=== PATIENT | female | born 2000 | race Caucasian/White ===

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

== ENCOUNTER 2021-01-02 12:38 | Emergency (ER) | payer BC, SELFPAY ==
[2021-01-02 12:42] VITALS: BP 133/80; PULSE 110; RESP 14; TEMP 36.3; O2SAT 100
--- NOTE | 2021-01-02 12:45 | DI.RAD_ITS ---
Exam(s) XR SHOULDER LT COMPLETE 2+V EXAM: XR SHOULDER LT COMPLETE 2+V CLINICAL HISTORY: Left shoulder pain, s/p trauma. TECHNIQUE: 2D digital imaging was performed. COMPARISON: No exams were available for comparison FINDINGS: There is no evidence of fracture or dislocation or abnormal soft tissue calcifications. Glenohumeral and AC joints appear unremarkable. There is no diminution of subacromial space height. Bone densit y is normal. No incidental significant osseous lesions IMPRESSION: No fracture. DATA REPOSITORY: RADIATION DOSE DELIVERED:
--- NOTE | 2021-01-02 12:45 | DI.RAD_ITS ---
Exam(s) XR PELVIS AP EXAM: XR PELVIS AP CLINICAL HISTORY: Trauma. TECHNIQUE: 2D digital imaging was performed. COMPARISON: No exams were available for comparison FINDINGS: No evidence of pelvic nor hip fracture. Sacroiliac joints appear unremarkable as does the symphysis pubis bone density is normal. No osseous lesions. IMPRESSION: DATA REPOSITORY: RADIATION DOSE DELIVERED:
--- NOTE | 2021-01-02 12:45 | DI.RAD_ITS ---
Exam(s) XR CHEST 2V PA LATERAL EXAM: XR CHEST 2V PA LATERAL CLINICAL HISTORY: Trauma. TECHNIQUE: 2D digital imaging was performed. COMPARISON: No exams were available for comparison FINDINGS: Heart size is normal. The mediastinum is not widened. Lungs are clear. No infiltrates nor pleural effusions. IMPRESSION: No acute pulmonary findings. DATA REPOSITORY: RADIATION DOSE DELIVERED:
--- NOTE | 2021-01-02 12:45 | DI.RAD_ITS ---
Exam(s) XR HAND RT COMPLETE EXAM: XR HAND RT COMPLETE CLINICAL HISTORY: Injury, right middle finger swollen. TECHNIQUE: 2D digital imaging was performed. COMPARISON: No exams were available for comparison FINDINGS: No evidence of fracture or dislocation. No radiopaque foreign body. No osseous lesions nor erosions . Bone density is normal. IMPRESSION: DATA REPOSITORY: RADIATION DOSE DELIVERED:
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
[2021-01-02] MEDS: Cyclobenzaprine 10 MG TAB PO (13:52)
[2021-01-02 14:14] LABS: Bilirubin Negative (Negative); Blood Trace-intact (Negative); Clarity Sl Cloudy (Clear); Glucose Negative (Negative); Ketones Negative (Negative); Leukocyte Esterase Negative (Negative); Nitrite Negative (Negative); Specific Gravity 1.025 (1.005-1.025); Urobilinogen 0.2 EU/dL (Up TO 0.2); pH 6.5 (5-8)
[2021-01-02] MEDS: Cyclobenzaprine 10 MG TAB, 3 TABS/BTL PO (14:17)
[2021-01-02 14:20] VITALS: BP 113/63; PULSE 74; RESP 16; TEMP 36.3; O2SAT 100
[2021-01-02 14:21] VITALS: BP 113/63; PULSE 74; RESP 16; TEMP 36.3; O2SAT 100
[2021-01-02 14:21] LABS: Bacteria Moderate HPF (Negative); C & S Indicated? No/Sq. Contamination; Casts Negative LPF (Negative); Crystals Negative HPF (Negative); Epithelial Cells Many HPF (Negative); Mucus Negative (Negative)
== END 2021-01-02 14:20 | disposition home or self-care (01) ==
PROVIDERS: Emergency Provider Registered Nurse Emergency; PCP Internal Medicine
DX: S69.91XA Unspecified injury of right wrist, hand and finger(s), initial encounter (principal); M25.512 Pain in left shoulder; R10.32 Left lower quadrant pain; S60.031A Contusion of right middle finger without damage to nail, initial encounter; V86.55XA Driver of 3- or 4- wheeled all-terrain vehicle (ATV) injured in nontraffic accident, initial encounter; R40.2412 Glasgow coma scale score 13-15, at arrival to emergency department
CPT/HCPCS: 81025; 99284; 71046; 72170; 73030; 73130; 81003; 81015

== ENCOUNTER 2021-07-31 13:28 | Outpatient (REF) | payer BC, SELFPAY ==
[2021-08-01 14:11] LABS: Chlamydia Result Negative (Negative); GC Result Negative (Negative)
== END 2021-07-31 13:29 | disposition home or self-care (01) ==
LOC: LBN 13:28
PROVIDERS: PCP Internal Medicine; Visit Provider Nurse Practitioner Women's Health
DX: Z11.3 Encounter for screening for infections with a predominantly sexual mode of transmission (principal)
CPT/HCPCS: 87491; 87591

== ENCOUNTER 2022-06-14 21:39 | Outpatient (REF) | payer BC, SELFPAY ==
[2022-06-14 22:02] LABS: Bacteria Many HPF (Negative); Casts Negative LPF (Negative); Crystals Negative HPF (Negative); Epithelial Cells Few HPF (Negative); Mucus Negative (Negative); Other Cells Negative (Negative); RBC 0-2 HPF (0-2)
[2022-06-15 07:33] LABS: C & S Indicated? C&S Done As Ordered
[2022-06-16 13:52] LABS: Chlamydia Result Negative (Negative); GC Result Negative (Negative)
== END 2022-06-14 21:40 | disposition home or self-care (01) ==
LOC: LBN 21:39
PROVIDERS: PCP Internal Medicine; Visit Provider Physician Assistant Medical
DX: R30.0 Dysuria (principal)
CPT/HCPCS: 87491; 87591; 81015; 87086; 87480; 87510; 87660

== ENCOUNTER 2022-06-21 10:36 | Emergency (ER) | payer BC, SELFPAY ==
[2022-06-21 10:38] VITALS: BP 145/85; PULSE 115; RESP 18; TEMP 36.9; O2SAT 98
--- NOTE | 2022-06-21 10:45 | DI.CT_ITS ---
Exam(s) CT HEAD WO EXAM: CT HEAD WO CLINICAL HISTORY: left head pain and blurred vision post fall with H. TECHNIQUE: Imaging Protocol: Axial computed tomography images with coronal and sagittal reformatted images were created and reviewed COMPARISON: CT CT HEAD CERVICAL SPINE WO from 02/09/2020 FINDINGS: Ventricles and Extra axial spaces: Normal in size and morphology for the patient's age. Hemorrhage: None. Cerebral parenchyma: Normal. Midline shift: None. Brainstem/Cerebellum: Normal. Calvarium: Normal. Visualized Paranasal sinuses/Mastoids: Clear. Soft Tissues: Unremarkable. IMPRESSION: No acute intracranial process. RADIATION DOSE DELIVERED: 849.17mGy.cm Total DLP DATA REPOSITORY: All CT scans at this facility are submitted to the National Radiology Data Registry (NRDR) Dose Index Registry (DIR) with the [employer] (A[employer]). RADIATION OPTIMIZATION: All CT scans at this facility use at least one of these dose optimization te chniques: automated exposure control; mA and/or kV adjustment per patient size (includes targeted exa ms where dose is matched to clinical indication); or iterative reconstruction.
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
[2022-06-21 12:08] VITALS: PULSE 101
[2022-06-21] MEDS: Acetaminophen 325 MG TAB 650 MG PO (12:08)
[2022-06-21] MEDS: Ibuprofen 600 MG TAB PO (12:08)
== END 2022-06-21 12:09 | disposition home or self-care (01) ==
PROVIDERS: Emergency Provider Physician Assistant; PCP Internal Medicine
DX: S06.0X0A Concussion without loss of consciousness, initial encounter (principal); W22.03XA Walked into furniture, initial encounter; H53.8 Other visual disturbances
CPT/HCPCS: 99284; 70450

== ENCOUNTER 2023-04-18 10:33 | Emergency (ER) | payer BC, SELFPAY ==
[2023-04-18 10:37] VITALS: BP 160/89; PULSE 107; RESP 16; TEMP 36.7; O2SAT 99
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
== END 2023-04-18 11:07 | disposition home or self-care (01) ==
PROVIDERS: Emergency Provider Physician Assistant; PCP Internal Medicine
DX: M54.16 Radiculopathy, lumbar region (principal); R05.9 Cough, unspecified; F17.210 Nicotine dependence, cigarettes, uncomplicated
CPT/HCPCS: 99283

== ENCOUNTER 2023-08-12 11:51 | Emergency (ER) | payer BC, SELFPAY ==
[2023-08-12 11:57] VITALS: BP 128/73; PULSE 87; RESP 16; TEMP 36.7; O2SAT 98
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
[2023-08-12 12:43] LABS: Bilirubin Negative (Negative); Blood Large (Negative); Clarity Clear (Clear); Glucose Negative (Negative); Ketones Negative (Negative); Leukocyte Esterase Negative (Negative); Nitrite Negative (Negative); Urobilinogen 0.2 mg/dL (Up to 0.2)
[2023-08-12] MEDS: Ketorolac 15 MG/ML VIAL IVP (12:47)
[2023-08-12] MEDS: Normal Saline 1,000 ML 1000 ML IV (12:47)
[2023-08-12] MEDS: ACETAMINOPHEN 1,000 MG/100 ML BTL 400 MG IVPB (12:47)
[2023-08-12 12:49] LABS: Lactate 1.2 mmol/L (0.6-1.4)
[2023-08-12 12:49] LABS: Bacteria Negative HPF (Negative); C & S Indicated? No; Casts Negative LPF (Negative); Crystals Negative HPF (Negative); Epithelial Cells Few HPF (Negative); Mucus Negative (Negative); WBC 0-2 HPF (0-5)
[2023-08-12 12:51] LABS: Abs Immature Grans 0.01 10^3/uL (0.0-0.06); Absolute Basophil Count 0.03 10^3/uL (0.0-0.2); Absolute Eosinophil Count 0.23 10^3/uL (0.0-0.7); Absolute Lymphocyte Count 3.22 10^3/uL (1.2-3.4); Absolute Monocyte Count 0.36 10^3/uL (0.1-0.8); Absolute Neutrophil Count 2.79 10^3/uL (1.2-6.7); Basophils % 0.5; Eosinophils % 3.5; HGB 15.5 g/dL (11.2-15.7); Immature Grans % 0.2; Lymphocytes % 48.5; MCH 31.4 pg (27.0-33.0); MCHC 33.7 % (32.0-36.0); MCV 93 fL (80-95); MPV 9.7 fL (8.0-11.0); Monocytes % 5.4; Neutrophils % 41.9; Platelet Count 252 10^3/uL (130-400); RBC 4.93 10^6/uL (3.93-5.22); RDW 12.3 % (11.7-14.6); RDW-SD 42.5 fL; WBC 6.64 10^3/uL (4.4-10.8)
--- NOTE | 2023-08-12 13:05 | DI.CT_ITS ---
Exam(s) CT RENAL COLIC WO EXAM: CT RENAL COLIC WO CLINICAL HISTORY: R flank pain. TECHNIQUE: Imaging Protocol: Axial computed tomography images with coronal and sagittal reformatted images were created and reviewed. CONTRAST MATERIAL: Noncontrast COMPARISON: CT CT CHEST/ABD/PEL W from 02/09/2020 FINDINGS: ABDOMEN: Lung Bases: Normal where visualized. Liver: Normal attenuation. No measurable mass. Gallbladder and biliary tract: No radiodense calculus or dilation. Pancreas: Normal density, no calcifications or inflammatory process. Spleen: Normal. Kidneys: Normal size, contour and axis. No radiodense stones or obstructive uropathy. No masses seen. Adrenal glands: No masses seen. Abdominal Aorta: Abdominal portion non-dilated. Soft tissues: Unremarkable. PELVIS: Bladder: Symmetric distention, no gross wall thickening. No evidence of stones.No visible mass. Bowel: No obstruction or bowel wall thickening. Reproductive: 3.3 centimeter left ovarian cyst. Peritoneal cavity: No ascites, collection or mesenteric inflammatory response. Bones: Unremarkable for age.. IMPRESSION: No acute abnormality in the abdomen or pelvis. RADIATION DOSE DELIVERED: Total DLP DATA REPOSITORY: All CT scans at this facility are submitted to the National Radiology Data Registry (NRDR) Dose Index Registry (DIR) with the [employer] (ACR). RADIATION OPTIMIZATION: All CT scans at this facility use at least one of these dose optimization te chniques: automated exposure control; mA and/or kV adjustment per patient size (includes targeted exa ms where dose is matched to clinical indication); or iterative reconstruction.
[2023-08-12 13:29] LABS: ALT 39 U/L (14-59); AST 27 U/L (15-37); Albumin 3.3 g/dL (3.4-5.0); Alkaline Phosphatase 81 U/L (46-116); Anion Gap 7.4 mmol/L (3-11); BUN 9 mg/dL (7-18); Bilirubin, Total 0.2 mg/dL (0.2-1.0); CO2 27.6 mmol/L (21.0-32.0); CREATININE 0.7 mg/dL (0.55-1.02); Calcium 8.7 mg/dL (8.5-10.1); Chloride 105 mmol/L (98-107); Estimated GFR 125.33 (mL/min/1.73m2); Glucose 101 mg/dL (74-106); Lipase 33 U/L (16-77); Potassium 4.1 mmol/L (3.5-5.1); Sodium 140 mmol/L (136-145); Total Protein 6.8 g/dL (6.4-8.2)
[2023-08-12 13:34] LABS: C-Reactive Protein < 0.50 mg/dL (<or=0.5)
[2023-08-12 13:47] LABS: Procalcitonin < 0.1 ng/mL
[2023-08-12 13:50] LABS: D-Dimer 482 ng/mlFEU (<500)
== END 2023-08-12 14:09 | disposition home or self-care (01) ==
PROVIDERS: Emergency Provider Physician Assistant; PCP Internal Medicine
DX: R10.9 Unspecified abdominal pain (principal); F17.210 Nicotine dependence, cigarettes, uncomplicated
CPT/HCPCS: 80053; 83690; 84145; 96361; 96374; 96375; 99284; 74176; 81003; 81015; 83605; 85025; 85379; 86140; J0131; J1885

== ENCOUNTER 2023-09-05 23:37 | Emergency (ER) | payer BC, SELFPAY ==
[2023-09-05 23:41] VITALS: BP 195/109; PULSE 80; RESP 16; TEMP 36.6; O2SAT 100
[2023-09-05 23:46] VITALS: BP 195/109; PULSE 80; RESP 16; TEMP 36.6; O2SAT 100
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
[2023-09-06] MEDS: Acetaminophen 325 MG TAB 650 MG PO (00:04)
[2023-09-06] MEDS: Ibuprofen 600 MG TAB PO (00:04)
[2023-09-06] MEDS: Amoxicillin 500 MG CAP PO (00:04)
[2023-09-06 00:23] VITALS: BP 165/87; PULSE 80; RESP 18; TEMP 36.8; O2SAT 98
== END 2023-09-06 00:23 | disposition home or self-care (01) ==
PROVIDERS: Emergency Provider Emergency Medicine Emergency Medical Services; PCP Family Medicine
DX: R68.84 Jaw pain (principal); K05.10 Chronic gingivitis, plaque induced; K00.6 Disturbances in tooth eruption
CPT/HCPCS: 99283; J0665

== ENCOUNTER 2023-10-23 13:21 | Emergency (ER) | payer BC, SELFPAY ==
[2023-10-23 13:23] VITALS: BP 170/73; PULSE 86; RESP 15; TEMP 36.2; O2SAT 99
[2023-10-23 13:29] VITALS: BP 170/73; PULSE 86; RESP 15; TEMP 36.2; O2SAT 99
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
[2023-10-23 14:00] LABS: Bilirubin Negative (Negative); Blood Small (Negative); Clarity Clear (Clear); Glucose Negative (Negative); Ketones Negative (Negative); Leukocyte Esterase Trace (Negative); Nitrite Negative (Negative); Specific Gravity 1.025 (1.005-1.025); Urobilinogen 0.2 mg/dL (Up to 0.2); pH 6.5 (5-8)
[2023-10-23 14:02] LABS: Lactate 0.5 mmol/L (0.6-1.4)
[2023-10-23 14:04] LABS: Abs Immature Grans 0.02 10^3/uL (0.0-0.06); Absolute Basophil Count 0.03 10^3/uL (0.0-0.2); Absolute Lymphocyte Count 2.39 10^3/uL (1.2-3.4); Absolute Monocyte Count 0.34 10^3/uL (0.1-0.8); Absolute Neutrophil Count 4.87 10^3/uL (1.2-6.7); Basophils % 0.4 %; Eosinophils % 1.3 %; HCT 39.7 % (36.0-46.0); HGB 13.2 g/dL (11.2-15.7); Immature Grans % 0.3 %; Lymphocytes % 30.8 %; MCH 31.2 pg (27.0-33.0); MCHC 33.2 % (32.0-36.0); MCV 94 fL (80-95); Monocytes % 4.4 %; Neutrophils % 62.8 %; RBC 4.23 10^6/uL (3.93-5.22); RDW 12.9 % (11.7-14.6); RDW-SD 43.8 fL; WBC 7.75 10^3/uL (4.4-10.8)
[2023-10-23 14:09] LABS: Bacteria Moderate HPF (Negative); Casts Negative LPF (Negative); Crystals Negative HPF (Negative); Epithelial Cells Few HPF (Negative); Mucus Negative (Negative)
[2023-10-23 14:10] LABS: C & S Indicated? Yes
[2023-10-23 14:15] LABS: Diff Comment PLT Morph Reviewed; RBC Morphology Normal
[2023-10-23 14:23] LABS: ALT 35 U/L (14-59); AST 24 U/L (15-37); Albumin 3.5 g/dL (3.4-5.0); Alkaline Phosphatase 89 U/L (46-116); Anion Gap 8.3 mmol/L (3-11); BUN 8 mg/dL (7-18); Bilirubin, Total 0.3 mg/dL (0.2-1.0); C-Reactive Protein 0.61 mg/dL (<or=0.5); CO2 26.7 mmol/L (21.0-32.0); CREATININE 0.9 mg/dL (0.55-1.02); Calcium 8.9 mg/dL (8.5-10.1); Chloride 106 mmol/L (98-107); Glucose 90 mg/dL (74-106); Lipase 43 U/L (16-77); Sodium 141 mmol/L (136-145); Total Protein 7.2 g/dL (6.4-8.2)
[2023-10-23] MEDS: Ondansetron O.D.T. 4 MG TABEF PO (16:02)
[2023-10-23] MEDS: Azithromycin 250 MG TAB 2000 MG PO (16:02)
[2023-10-23] MEDS: cefTRIAXone 500 MG VIAL IM (16:02)
[2023-10-23] MEDS: Ondansetron O.D.T. 4 MG TABEF, 3 TABS/BTL PO (16:03)
[2023-10-24 13:07] LABS: Chlamydia Result Negative (Negative); GC Result Negative (Negative)
--- NOTE | 2023-10-25 09:59 | ED.PROG_ITS ---
Date of service: 10/25/23 Time of Service: 10:00 Medical Decision Making Patient was seen by this provider 2 days ago for dysuria, was placed on Macrobid for UTI and urine culture shows resistance to this antibiotic, plan to change to Keflex, patient is also taking Flagyl for BV and trichomonas. Spoke to patient on the phone at 1048 - sent cephalexin, told to DC nitrofurantoin- but keep taking metro due to trich and BV. Patient will pick-up Keflex today. Medical Records Medical records reviewed: Yes I reviewed the patient's medical records. Lab Data Lab results reviewed: Yes I reviewed the patient's lab results. Lab results narrative: Urine Cx shows resistance to macrobid- sensitive to all others. Quality:SDOH Health Related Social Needs: No Data to Display Discharge Plan Disposition Patient Disposition: Home Condition: Stable Discharge Details Clinical Impression: Urinary tract infection Primary Care Provider: Rj Logan ED Provider: Aaron Velazquez Home Meds and New Rx's Prescriptions: New nitrofurantoin macrocrystal 100 mg capsule 100 mg PO BID 5 Days Qty: 10 0RF Rx Instructions: must administer with a meal/food metronidazole 500 mg tablet 500 mg PO BID 7 Days Qty: 14 0RF cephalexin 500 mg capsule 500 mg PO QID 7 Days Qty: 28 0RF Continued Nexplanon 68 mg implant 1 implant subdermal ONCE Rx Instructions: as a single dose Discharge Instructions Instructions: Nitrofurantoin (By mouth), Urinary Tract Infection in Women (ED) Additional Instructions: You were seen in the emergency department for your dysuria with vaginal pain, you have a known history of ovarian cysts as well as some scant bleeding. Treat ing you for STI with a one-time dose prophylaxis for most common bacterial STDs with your new partner and recent history. There is evidence of a UTI on your urinalysis and I have sent an antibiotic called Macrobid to [facility] in [place], your vaginal pathogen screen which test for yeast, bacterial vaginosis and trichomonas has not returned yet. If you require further prescriptions to treat any 1 of these conditions I will send them to [facility] tomorrow if necessary. Please use Tylenol and ibuprofen as needed for pain and discomfort. Please return to the emergency department for any severe increase in low back pain, fever, nausea or weakness or increasing vaginal discharge or bleeding, especially with dizziness. Referrals: Rj Logan MD [Primary Care Provider] - Discharge Data Discharge Date/Time-TO BE ENTERED AT DEPARTURE: 10/23/23 16:04
== END 2023-10-23 16:04 | disposition home or self-care (01) ==
PROVIDERS: Emergency Provider Physician Assistant; PCP Family Medicine
DX: N39.0 Urinary tract infection, site not specified (principal); F17.290 Nicotine dependence, other tobacco product, uncomplicated; F17.210 Nicotine dependence, cigarettes, uncomplicated
CPT/HCPCS: 00123; 36415; 80053; 81025; 83690; 87077; 87491; 87591; 96372; 99284; 81003; 81015; 83605; 85025; 86140; 87086; 87186; 87480; 87510; 87660; J0696

== ENCOUNTER 2024-04-14 10:35 | Emergency (ER) | payer BC, SELFPAY ==
[2024-04-14 10:42] VITALS: BP 137/71; PULSE 96; RESP 15; TEMP 36.3; O2SAT 100
[2024-04-14 10:46] VITALS: BP 137/71; PULSE 96; RESP 15; TEMP 36.3; O2SAT 100
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
[2024-04-14 11:19] LABS: Bilirubin Negative (Negative); Blood Small (Negative); Clarity Sl Cloudy (Clear); Glucose Negative (Negative); Ketones 40 mg/dL (Negative); Leukocyte Esterase Small (Negative); Nitrite Positive (Negative); pH 6.5 (5-8)
[2024-04-14] MEDS: Acetaminophen 325 MG TAB 650 MG PO (11:23)
[2024-04-14 11:26] LABS: Bacteria Moderate HPF (Negative); C & S Indicated? Yes; Casts Negative LPF (Negative); Crystals Negative HPF (Negative); Epithelial Cells Many HPF (Negative); Mucus Negative (Negative)
--- NOTE | 2024-04-16 07:34 | NUR.NOTE ---
Accessed Pt chart to identify the antibiotics given to Pt. for the specimen. Document put on the specimen clip board.
--- NOTE | 2024-04-16 10:06 | W.ED.FU ---
Follow Up Plan: Urine culture results received, E. coli greater than 100,000 colonies per mL and gram-positive mixed carlo isolated. Patient is currently being treated with nitrofurantoin BID x 7 days, no change to treatment plan needed.
== END 2024-04-14 12:30 | disposition home or self-care (01) ==
PROVIDERS: Emergency Provider Emergency Medicine; PCP Family Medicine
DX: N39.0 Urinary tract infection, site not specified (principal)
CPT/HCPCS: 81025; 87077; 99283; 81003; 81015; 87086; 87186

== ENCOUNTER 2024-05-25 09:55 | Outpatient (REF) | payer BC, SELFPAY ==
--- NOTE | 2024-05-25 09:45 | PAPFT_PTH ---
PATIENT: Cathy Todd V LOC: [facility] U#:[id number] AGE/SX: 24/F ROOM: RE05/25/[address]: Dulce Mcelroy DO : 2000 BED: DIS: 05/25/2024 SPEC #: [id number] RECD: 05/25/24 12:57 STATUS: BIB REZion #: [id number] DANNA: 05/25/24 09:[address]: Dulce Mcelroy DEPT: [facility] Cytology RECD BY: Antoinette Hatfield ENTERED: 05/25/24 12:57 SP TYPE: PAPFT OTHR DR: Rj Logan Tissues: 1 - CX/ENDOCX FOR PAP SMEARS Procedures: PAP THIN PREP/UVM Screening HPV DNA PROBE Comments: [id number] (HPV 16 & 18/45) (CHLAMYDIA/GC)
[2024-05-26 12:46] LABS: Chlamydia Result Negative (Negative); GC Result Negative (Negative)
== END 2024-05-25 09:56 | disposition home or self-care (01) ==
LOC: LBN 09:55
PROVIDERS: PCP Family Medicine; Visit Provider Obstetrics & Gynecology
DX: Z01.419 Encounter for gynecological examination (general) (routine) without abnormal findings (principal); F19.90 Other psychoactive substance use, unspecified, uncomplicated; B00.2 Herpesviral gingivostomatitis and pharyngotonsillitis
CPT/HCPCS: 87491; 87591; 88142; 87624

== ENCOUNTER 2024-07-16 11:43 | Emergency (ER) | payer BC, SELFPAY | END 2024-07-16 12:20 | disposition left against medical advice (07) | PROVIDERS: PCP Family Medicine | DX: Z53.21 Procedure and treatment not carried out due to patient leaving prior to being seen by health care provider (principal) ==

== ENCOUNTER 2024-08-22 08:59 | Emergency (ER) | payer BC, SELFPAY ==
[2024-08-22 09:07] VITALS: BP 160/99; PULSE 88; RESP 14; TEMP 36.8; O2SAT 100
[2024-08-22] MEDS: Benzocaine 20% Gel 30 GM JAR MM (09:52)
[2024-08-22] MEDS: Bupivacaine 0.5% Pres-Free 30 ML VIAL IJ (09:54)
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
== END 2024-08-22 09:56 | disposition home or self-care (01) ==
PROVIDERS: Emergency Provider Physician Assistant; PCP Family Medicine
DX: K08.89 Other specified disorders of teeth and supporting structures (principal); H92.01 Otalgia, right ear
CPT/HCPCS: 87426; 94640; 99283; 99284; J0665

== ENCOUNTER 2025-02-14 18:58 | Emergency (ER) | payer BC, SELFPAY ==
[2025-02-14 19:05] VITALS: BP 131/94; PULSE 114; RESP 20; TEMP 36.7; O2SAT 98
[2025-02-14] MEDS: Methocarbamol 500 MG TAB 1000 MG PO (19:32)
[2025-02-14] MEDS: Ketorolac 30 MG/ML VIAL IM (19:32)
[2025-02-14] MEDS: Lidocaine 5% Patch 2 PATCH TP (19:32)
[2025-02-14] MEDS: methylPREDNISolone SUCC 125 MG VIAL IM (19:32)
[2025-02-14 20:27] LABS: Glucose Negative (Negative)
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
[2025-02-14 20:41] LABS: C & S Indicated? No; RBC 0-2 HPF (0-2)
--- NOTE | 2025-02-15 06:57 | NUR.NOTE ---
Patient called to request a work note. One was provided to patient.
--- NOTE | 2025-02-17 09:30 | NUR.NOTE ---
Access chart to get the PCP for prior authorization for lidocaine 5% patches. Nursing Note:
== END 2025-02-14 20:23 | disposition home or self-care (01) ==
PROVIDERS: Emergency Provider Student in an Organized Health Care Education/Training Program; PCP Family Medicine
DX: M54.50 Low back pain, unspecified; M54.31 Sciatica, right side; M54.32 Sciatica, left side; Z59.41 Food insecurity
CPT/HCPCS: 99284 ×2; 96372; 81003; 81015; J1885; J2919